=== PATIENT | male | born 1955 | race Two or more races ===

== ENCOUNTER 2016-11-20 10:59 | Emergency (ER) | payer BC ==
[~2016-11-20] VITALS: Ht 165.1 cm; Wt 77.1 kg
[2016-11-20 11:21] VITALS: BP 165/94
== END 2016-11-20 11:52 | disposition left against medical advice (07) ==
LOC: ER 11:05
DX: E11.621 Type 2 diabetes mellitus with foot ulcer (principal); Z53.21 Procedure and treatment not carried out due to patient leaving prior to being seen by health care provider; W22.8XXA Striking against or struck by other objects, initial encounter; Y93.89 Activity, other specified; Y99.8 Other external cause status; Y92.89 Other specified places as the place of occurrence of the external cause